=== PATIENT | female | born 1990 | race Caucasian/White ===

== ENCOUNTER 2017-09-08 02:06 | Observation (INO) | payer OTHER ==
[~2017-09-08] VITALS: Ht 170.2 cm; Wt 102.1 kg
[2017-09-08] VITALS (10 sets, daily range): BP systolic 82–127; BP diastolic 53–82
--- NOTE | ~2017-09-08 | PATH ---
[facility] [address] [place] [address] PATHOLOGY RPT PROCEDURE Name: LUCILLE VASQUEZ Room #: 432-P DIS Erik M.RPriya#: [id number] Admission: 09/08/17 Date of : 88 Discharge: 09/08/17 Report #: [id number] Path Case #: [id number] [facility] Accession Number: [id number] . 01 Material submitted: . APPENDIX . 01 Clinical history: . Acute appendicitis . 02 Diagnosis: Appendix, appendectomy: - Marked acute appendicitis along with marked serositis. (IUV/db; 09/12/17) LBQ/09/14/2017 . 02 Electronically signed: . Lindy Hsieh MD, Pathologist NPI- [id number] . 01 Gross description: . Received in formalin, labeled "Lucille Vasquez and appendix", is an intact appendix (9.5 cm length x 0.6 cm diameter) and attached mesoappendix (9.5 x 2.6 x 1.0 cm). The serosa is plascencia-pink with engorged vessels and has no perforation. The proximal resection margin is closed by a linear staple line measuring 1.5 cm in length with an average 0.2 cm width. The staple line is removed and the adjacent serosa is inked black. The lumen the lumen is not dilated and filled with red-brown hemorrhagic material and no discrete fecalith. The wall has an average thickness of 0.2 cm. The ashley-appendiceal soft tissue has a yellow cut surface. Executive Team Leader sections are submitted in A1. . ([facility]; 09/08/2017) SHS/SHS . 02 Pathologist provided ICD-10: K35.80 . 02 CPT . 992927 Performed at: [address] [id number] MD Thony Olivares MD Phone: [phone] Performed at: [address] [id number] [address] [address] PATHOLOGY RPT PROCEDURE Name: LUCILLE VASQUEZ Room #: 432-P [facility] M.R.#: [id number] Admission: 09/08/17 Date of : 88 Discharge: 09/08/17 Report #: [id number] Path Case #: [id number] MD Lindy Hsieh MD Phone: [phone]
--- NOTE | ~2017-09-08 | O ---
[facility] [place] [address] OPERATIVE REPORT Name: LUCILLE VASQUEZ Room #: 432-P [facility] Erik Rodriguez#: [id number] Admission: 09/08/17 Attend Phys: Jean Reed MD, F Discharge: 09/08/17 Date of : 88 Report #: [id number] THIS REPORT FOR: //name// CC: AARON physician/PCP Jean Reed DATE OF SERVICE: 09/08/2017 SURGEON: Jean Reed M.D. KNOCK UP ASSEMBLER: None. PREOPERATIVE DIAGNOSES: 1. Acute appendicitis. 2. Irritable bowel syndrome. POSTOPERATIVE DIAGNOSES: 1. Acute nonsuppurative, nonperforated appendicitis. 2. Irritable bowel syndrome. PROCEDURE: Laparoscopic appendectomy. ANESTHESIA: General endotracheal anesthesia and local anesthetic. ESTIMATED BLOOD LOSS: 5 mL. SPECIMEN: Appendix. COMPLICATIONS: None appreciated. INDICATIONS FOR PROCEDURE: This is a 27-year-old female patient with a history of irritable bowel syndrome, who developed periumbilical pain 2 nights ago. Her pain subsided, but localized to her right abdomen. The patient was seen at the [facility] Emergency Room, where she underwent a CT of the abdomen and pelvis, showing a dilated appendix to 9 mm with adjacent fat stranding. The patient's exam was consistent with acute appendicitis. She presents today for laparoscopic appendectomy. OPERATIVE FINDINGS: Upon entrance into the abdominal cavity, the appendix was easily identified. It was hyperemic with hypervasculature and dilated as seen on the CT scan. The base of the appendix was relatively uninvolved with acute inflammatory change. There was no evidence for perforation or abscess. No other significant intra-abdominal pathology was seen, including lack of a Meckel's diverticulum, normal-appearing small bowel and colon and surrounding area as well as a normal-appearing liver. After removal of the appendix from the abdominal cavity, the abdomen was then re-entered and the staple line was [facility] [address] [place] [address] OPERATIVE REPORT Name: LUCILLE VASQUEZ Room #: 432-P [facility].#: [id number] Admission: 09/08/17 Attend Phys: Jean Reed MD, F Discharge: 09/08/17 Date of : 88 Report #: [id number] secure with good hemostasis. At the conclusion of the operation, the sponge, needle and instrument counts were correct. DESCRIPTION OF PROCEDURE IN DETAIL: After the risks, benefits and expectations of the operation were discussed in detail with the patient, informed consent was obtained. The patient was identified in the preoperative holding area. She was given IV antibiotics as documented in the chart in line with SCIP metrics. She had received prophylactic antibiotics. The patient was then taken to the operating room and she was placed in the supine position. SCDs were placed on the patient's bilateral lower extremities and pneumatic compression was initiated. The patient was then given IV sedation and she was intubated without incident. Her abdomen was prepped and draped in the standard sterile fashion. Timeout was performed to identify the correct patient and procedure. Local anesthetic was infiltrated into the skin and subcutaneous tissue infraumbilically, where a curvilinear incision was made with #15 blade scalpel. Dissection was carried down to the fascia. A small fascial skin jh was created sharply. An 11-mm Visiport was then placed intraperitoneally with a 0-degree angled laparoscope. Pneumoperitoneum was achieved with insufflation of carbon dioxide to 15 mmHg. A 30-degree angled laparoscope was inserted. The patient was placed in the Trendelenburg position. A suprapubic 5 mm and left lower quadrant 5-mm port were each placed under direct visualization after local anesthetic was infiltrated into the skin and subcutaneous tissue and appropriately sized incisions were made. Operative findings are as noted above. The appendix was identified and the base of the appendix was visualized. A window was made in the mesoappendix adjacent to the base of the appendix. A blue load 60-mm NICK stapler was then used to staple and divide the appendix at its base. The mesoappendix was divided with the ultrasonic dissector with good hemostasis. The appendix and mesoappendix were then placed in an Endopouch and removed through the 11-mm port site. A dtqhkp-dl-dyssv 0 PDS suture was then placed with the Ernesto-Eusebia laparoscopic fascial closure device. The suture was tagged and the port was replaced and the abdominal cavity was re-entered. The staple line was secure with good hemostasis. No other significant intra-abdominal pathology was seen. The small bowel had been run back 2 feet and there was no evidence for a Meckel's diverticulum. The remainder of the abdominal cavity was briefly surveyed. At the conclusion of the operation, sponge, needle, and instrument counts were correct. No other significant findings were present. The abdominal cavity was desufflated and the ports were removed. The suture had been tied under direct visualization to ensure no incorporation of intra-abdominal content. The patient's abdomen was then cleansed. An interrupted subcuticular 4-0 Monocryl suture and Dermabond were used to close the skin. The patient tolerated the procedure well. She was [facility] [address] [place] [address] OPERATIVE REPORT Name: LUCILLE VASQUEZ Room #: 432-P [facility] Erik Rodriguez#: [id number] Admission: 09/08/17 Attend Phys: Jean Reed MD, F Discharge: 09/08/17 Date of : 88 Report #: [id number] awakened, extubated and taken to the recovery room in a stable condition, with no apparent intraoperative complications. <ELECTRONICALLY SIGNED> By: Jean Reed MD, FACS 09/12/17 [id number] Jean Reed MD, FACS /nt
[2017-09-08 02:37] LABS: ABSOLUTE NEUTROPHILS 6.3 thou/uL (1.4-8.2); BASOPHILS 0.6 % (0.0-2.0); HEMATOCRIT 38.5 % (37.0-47.0); HEMOGLOBIN 13.2 gm/dL (12.0-15.0); LYMPHOCYTES 26.4 % (24.0-44.0); MCH 32.6 pg (26.0-34.0); MCHC 34.2 g/dL (28.0-37.0); MCV 95.1 fL (80.0-100.0); MONOCYTES 6.7 % (1.0-8.0); PLATELET COUNT 259 thou/uL (150-400); POLYS 65.3 % (36.0-66.0); RBC 4.05 mil/uL (4.20-5.00); RDW 12.7 % (10.5-14.5); WBC 9.6 thou/uL (4.0-11.0)
[2017-09-08 02:51] LABS: CALCIUM 8.7 mg/dL (8.5-10.1); CREATININE 0.8 mg/dL (0.6-1.0); POTASSIUM 3.7 mmol/L (3.5-5.1)
[2017-09-08 02:56] LABS: ALBUMIN 3.8 g/dL (3.4-5.0); DIRECT BILIRUBIN 0.2 mg/dL (<0.1-0.3); TOTAL BILIRUBIN 0.6 mg/dL (<0.1-1.0); TOTAL PROTEIN 7.3 g/dL (6.4-8.2)
[2017-09-08 02:57] LABS: URINE BILIRUBIN NEGATIVE (Negative); URINE BLOOD NEGATIVE (Negative); URINE CLARITY CLEAR; URINE COLOR YELLOW; URINE GLUCOSE-RANDOM* NEGATIVE (Negative); URINE KETONES NEGATIVE (Negative); URINE LEUKOCYTES-REFLEX NEGATIVE (Negative); URINE NITRITE-REFLEX NEGATIVE (Negative); URINE PROTEIN (DIPSTICK) NEGATIVE (Negative); URINE UROBILINOGEN 0.2 E.U./dl (0.2-1.0)
[2017-09-08] MEDS ORDERED: NORCO 5-325 TA1 EACH PO (11:01)
[2017-09-08] MEDS ORDERED: SENNA-S TABLET1 EACH PO (11:01)
== END 2017-09-08 18:12 | disposition home or self-care (01) ==
LOC: ER 02:06 → EROBS 05:18 → 4E 05:40
PROVIDERS: Emergency Medicine
DX: K35.80 Unspecified acute appendicitis (principal); K58.9 Irritable bowel syndrome, unspecified; F17.210 Nicotine dependence, cigarettes, uncomplicated
CPT/HCPCS: 50010; 50101; 50249; 50411; 50555; 50558; 50739; 50740; 50962; 51975; 52265; 53307; 54022; 54118; 56526; 56527; 62110; 62900; 70005

== ENCOUNTER 2020-05-01 11:56 | Emergency (ER) | payer BC ==
[~2020-05-01] VITALS: Ht 170.2 cm; Wt 95.7 kg
[~2020-05-01 11:56] MED LIST: NORCO 5-325 TA1 EACH PO; SENNA-S TABLET1 EACH PO
[2020-05-01 13:31] LABS: URINE BILIRUBIN NEGATIVE (Negative); URINE BLOOD NEGATIVE (Negative); URINE CLARITY CLEAR; URINE COLOR YELLOW; URINE GLUCOSE-RANDOM* NEGATIVE (Negative); URINE KETONES NEGATIVE (Negative); URINE LEUKOCYTES-REFLEX NEGATIVE (Negative); URINE NITRITE-REFLEX NEGATIVE (Negative); URINE PROTEIN (DIPSTICK) TRACE (Negative); URINE UROBILINOGEN 0.2 E.U./dl (0.2-1.0)
[2020-05-01] MEDS ORDERED: PREDNISONE 10 M10 MG PO (13:54)
[2020-05-01 14:19] VITALS: BP 106/58
== END 2020-05-01 14:20 | disposition home or self-care (01) ==
LOC: ER 11:56
PROVIDERS: Emergency Medicine
DX: T78.40XA Allergy, unspecified, initial encounter (principal); F17.210 Nicotine dependence, cigarettes, uncomplicated; Y92.89 Other specified places as the place of occurrence of the external cause